=== PATIENT | female | born 1965 | race Caucasian/White ===

== ENCOUNTER 2017-01-24 18:53 | Emergency (ER) | payer MEDICARE, SELFPAY ==
--- NOTE | 2017-01-24 20:15 | EDM.PDOC ---
ED HISTORY OF PRESENT ILLNESS - General Chief Complaint: Chest Pain Stated Complaint: HEAD TINGLING, FATIGUE Time Seen by Provider: 01/24/17 18:55 Source: Reports: Patient History Limitations: Reports: No limitations - History of Present Illness INITIAL COMMENTS - FREE TEXT/NARRATIVE: History of present illness: [51-year-old female presents with an episode of chest pain that occurred about 12:30 1:00 that lasted for about 5 minutes. It was sharp and pressure-like in central in location and associated with some shortness of breath no nausea or diaphoresis. It just happened spontaneously and resolve spontaneously. She's never had anything like it before and now she's feeling fine. She has no history of cardiac disease she does have a history of diabetes and is on Trulicity. I checked the side effect profile for this medication and nothing came up that would suggest it was from the medication.] Review of systems: As per history of present illness and below otherwise all systems reviewed and negative. Past medical history: As per history of present illness and as reviewed below otherwise noncontributory. Surgical history: As per history of present illness and as reviewed below otherwise noncontributory. Social history: No reported history of drug or alcohol abuse. Family history: As per history of present illness and as reviewed below otherwise noncontributory. Physical exam: HEENT: Atraumatic, normocephalic, pupils reactive, negative for conjunctival pallor or scleral icterus, mucous membranes moist, throat clear, neck supple, nontender, trachea midline. Lungs: Clear to auscultation, breath sounds equal bilaterally, chest nontender. Heart: S1S2, regular Abdomen: Soft, nondistended, nontender. Negative for masses or hepatosplenomegaly. Pelvis: Stable nontender. Genitourinary: Deferred. Rectal: Deferred. Extremities: Atraumatic, negative for cords or calf pain. Neurovascular unremarkable. Neuro: Awake, alert, oriented. Exam nonfocal. Diagnostics: [CBC complete metabolic panel d-dimer and troponin were unremarkable EKG is unremarkable] Therapeutics: [] Impression: [Atypical chest pain] Plan: [I am suggesting that she follow up with her primary care provider for consideration of cardiac stress test. Although I think that cardiac etiology for her symptoms is unlikely. We went over the more typical symptoms of coronary syndrome and if these occur she is to return to the ER.] Definitive disposition and diagnosis as appropriate pending reevaluation and review of above. - Related Data Allergies/ADRs: Allergies Allergy/AdvReac Type Severity Reaction Status Date / Time azithromycin AdvReac Intermediate Nausea Verified 01/24/17 19:06 Home Meds: Home Meds Albuterol [Ventolin HFA] 2 puff INH Q4H PRN 07/01/13 [History] Aspirin [Adult Low Dose Aspirin EC] 81 mg PO DAILY 07/01/13 [History] Cyclobenzaprine HCl [Flexeril] 10 mg PO TID PRN 07/01/13 [History] Lisinopril 20 mg PO DAILY 07/01/13 [History] Omeprazole [Prilosec] 20 mg PO DAILY 07/01/13 [History] Zolpidem [Ambien] 10 mg PO BEDTIME 07/01/13 [History] atorvaSTATin [Lipitor] 40 mg PO DAILY 07/01/13 [History] metFORMIN [Glucophage] 850 mg PO TID 07/01/13 [History] traMADol HCl [Ultram] 1 tab PO Q6HR 07/01/13 [History] Gabapentin [Neurontin] 1 tab PO TID 06/22/15 [History] Mupirocin Cream [Bactroban Crm] 1 applic TOP BID 06/22/15 [History] Naproxen [Naprosyn] 500 mg PO BID 10/25/15 [History] Past Medical History HEENT History: Reports: Cataract, Impaired vision, Sinusitis Cardiovascular History: Reports: Congenital septal defect, High cholesterol, Hypertension Respiratory History: Reports: Asthma, Bronchitis, recurrent Gastrointestinal History: Reports: Cholelithiasis, Gastritis, GERD Other Gastrointestinal History: Hep C 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 , 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, Musculoskeletal History: Reports: Back pain, chronic Neurological History: Reports: Neuropathy, peripheral Psychiatric History: Reports: Anxiety, Panic attack Endocrine/Metabolic History: Reports: Diabetes, type II Oncologic (Cancer) History: Reports: Cervix - Infectious Disease History Infectious Disease History: Reports: Hepatitis C - Past Surgical History HEENT Surgical History: Reports: Cataract surgery Cardiovascular Surgical History: Reports: Other (see below) Other Cardiovascular Surgeries/Procedures: repair congenital septal defect GI Surgical History: Reports: Cholecystectomy, Colonoscopy Female Surgical History: Reports: section, Tubal ligation Social & Family History - Tobacco Use Smoking Status *Q: Former Smoker Years of Tobacco use: 18 Used Tobacco, but Quit: No Second Hand Smoke Exposure: Yes - Alcohol Use Days Per Week of Alcohol Use: 1 Number of Drinks Per Day: 12 Total Drinks Per Week: 12 - Recreational Drug Use Recreational Drug Use: No Drug Use in Last 12 Months: No ED ROS GENERAL - Review of Systems Review Of Systems: ROS reveals no pertinent complaints other than HPI. ED EXAM, GENERAL - Physical Exam Exam: See Below Course - Vital Signs Last Recorded V/S: Last Vital Signs Temp 36.6 C 01/24/17 19:03 Pulse 90 01/24/17 19:03 Resp 18 01/24/17 19:03 BP 177/97 H 01/24/17 19:03 Pulse Ox 98 01/24/17 19:03 - Orders/Labs/Meds Orders: Active Orders 24 hr Category Date Time Status EKG Documentation Completion [RC] ASDIRECTED Care 01/24/17 19:20 Active EKG 12 Lead [EK] Stat Ther 01/24/17 19:20 Ordered Labs: Laboratory Tests 01/24/17 01/24/17 01/24/17 Range/Units 19:20 19:20 19:20 WBC 5.4 (4.5-11.0) K/uL RBC 4.58 (3.30-5.50) M/uL Hgb 12.9 (12.0-15.0) g/dL Hct 40.0 (36.0-48.0) % MCV 87 (80-98) fL MCH 28 (27-31) pg MCHC 32 (32-36) % Plt Count 149 L (150-400) K/uL Neut % (Auto) 51 (36-66) % Lymph % (Auto) 36 (24-44) % Burnet % (Auto) 11 H (2-6) % Eos % (Auto) 2 (2-4) % Baso % (Auto) 1 (0-1) % D-Dimer, Quantitative < 100 (0.0-400.0) ng/mL Sodium 142 (140-148) mmol/L Potassium 4.0 (3.6-5.2) mmol/L Chloride 105 (100-108) mmol/L Carbon Dioxide 26 (21-32) mmol/L Anion Gap 11.2 (5.0-14.0) mmol/L BUN 13 D (7-18) mg/dL Creatinine 0.8 (0.6-1.0) mg/dL Est Cr Clr Drug Dosing 67.27 mL/min Estimated GFR (MDRD) > 60 (>60) Glucose 104 (74-106) mg/dL Calcium 9.0 (8.5-10.1) mg/dL Total Bilirubin 0.5 (0.2-1.0) mg/dL AST 23 (15-37) U/L ALT 29 (12-78) U/L Alkaline Phosphatase 66 (46-116) U/L Troponin I < 0.017 (0.000-0.056) ng/mL Total Protein 7.6 (6.4-8.2) g/dL Albumin 3.9 (3.4-5.0) g/dL Globulin 3.7 H (2.3-3.5) g/dL Albumin/Globulin Ratio 1.1 L (1.2-2.2) Departure - Departure Time of Disposition: 20:14 Disposition: Home, Self-Care 01 Condition: good Clinical Impression: Atypical chest pain Forms: ED Department Discharge Additional Instructions: Please followup with your primary care doctor for consideration of a cardiac stress test. If the symptoms recur especially if they last longer than 5 minutes he should followup in the ER - My Orders Last 24 Hours: My Active Orders 01/24/17 19:20 EKG Documentation Completion [RC] ASDIRECTED EKG 12 Lead [EK] Stat - Assessment/Plan Last 24 Hours: My Active Orders 01/24/17 19:20 EKG Documentation Completion [RC] ASDIRECTED EKG 12 Lead [EK] Stat
[2017-01-24 20:32] VITALS: BP 148/79
== END 2017-01-24 20:32 | disposition home or self-care (01) ==
LOC: JP.ED 18:53
DX: R07.89 Other chest pain (principal); E78.00 Pure hypercholesterolemia, unspecified; I10 Essential (primary) hypertension; K21.9 Gastro-esophageal reflux disease without esophagitis; E11.9 Type 2 diabetes mellitus without complications; Z90.49 Acquired absence of other specified parts of digestive tract; Z87.891 Personal history of nicotine dependence; Z88.1 Allergy status to other antibiotic agents; Z79.899 Other long term (current) drug therapy; Z79.82 Long term (current) use of aspirin
CPT/HCPCS: 36415; 80053; 84484; 85025; 85379; 93005; 93010; 99283; 99285-25

== ENCOUNTER 2017-04-07 00:21 | Emergency (ER) | payer MEDICARE, SELFPAY ==
[2017-04-07 00:56] VITALS: BP 149/79
[2017-04-07] MEDS ORDERED: Bacitracin Oint 1 GM U/D Packet TOP ONE (01:15)
[2017-04-07] MEDS ORDERED: HYDROmorphone 1 MG/ML Syringe IVPUSH ONE (01:26)
[2017-04-07] MEDS ORDERED: HYDROmorphone 1 MG/ML Syringe IM ONE (01:47)
--- NOTE | 2017-04-07 02:01 | EDM.PDOC ---
ED HPI GENERAL MEDICAL PROBLEM - General Chief Complaint: Upper Extremity Injury/Pain Stated Complaint: FELL DOWN A FLIGHT OF STAIRS / RT ARM INJURY Time Seen by Provider: 04/07/17 00:26 Source of Information: Reports: Patient, Family ( and Nephew) History Limitations: Reports: No Limitations - History of Present Illness INITIAL COMMENTS - FREE TEXT/NARRATIVE: right shoulder pain, left thumb and left foot; this is a 52 year old female presents to ER with and Nephew. They are moving her Daughter out of her home, when she thought she was going up the stairs, when in fact she was facing down the stairs. She went face first and slid down the stairs. The fall was witnessed by her Nephew, who reports she fell down the stair, kind of slid on her face with her right arm shielding her face. no loc reports had a few drinks prior to fall Onset: Sudden Duration: Hour(s): Location: Reports: Upper Extremity, Left, Upper Extremity, Right, Lower Extremity, Left Quality: Reports: Sharp Severity: Moderate Worsens with: Reports: Movement Context: Reports: Trauma (fall at home, down the stairs) Associated Symptoms: Reports: No Other Symptoms right arm Pain Score (Numeric/FACES): 10 - Related Data Allergies Allergy/AdvReac Type Severity Reaction Status Date / Time azithromycin AdvReac Intermediate Nausea Verified 04/07/17 00:52 Home Meds: Home Meds Albuterol [Ventolin HFA] 2 puff INH Q4H PRN 07/01/13 [History] Aspirin [Adult Low Dose Aspirin EC] 81 mg PO DAILY 07/01/13 [History] Cyclobenzaprine HCl [Flexeril] 10 mg PO TID PRN 07/01/13 [History] Lisinopril 20 mg PO DAILY 07/01/13 [History] Omeprazole [Prilosec] 20 mg PO DAILY 07/01/13 [History] Zolpidem [Ambien] 10 mg PO BEDTIME 07/01/13 [History] atorvaSTATin [Lipitor] 40 mg PO DAILY 07/01/13 [History] metFORMIN [Glucophage] 850 mg PO TID 07/01/13 [History] traMADol HCl [Ultram] 1 tab PO Q6HR 07/01/13 [History] Gabapentin [Neurontin] 1 tab PO TID 06/22/15 [History] Mupirocin Cream [Bactroban Crm] 1 applic TOP BID 06/22/15 [History] Naproxen [Naprosyn] 500 mg PO BID 10/25/15 [History] Past Medical History HEENT History: Reports: Cataract, Impaired Vision, Sinusitis Cardiovascular History: Reports: Congenital Septal Defect, High Cholesterol, Hypertension Respiratory History: Reports: Asthma, Bronchitis, Recurrent Gastrointestinal History: Reports: Cholelithiasis, Gastritis, GERD Other Gastrointestinal History: 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 , 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, Musculoskeletal History: Reports: Back Pain, Chronic Neurological History: Reports: Neuropathy, Peripheral Psychiatric History: Reports: Anxiety, Panic Attack Endocrine/Metabolic History: Reports: Diabetes, Type II Hematologic History: Reports: None Immunologic History: Reports: Other (See Below) Other Immunologic History: hepatitis C Oncologic (Cancer) History: Reports: Cervix - Infectious Disease History Infectious Disease History: Reports: Chicken Pox - Past Surgical History HEENT Surgical History: Reports: Cataract Surgery Cardiovascular Surgical History: Reports: Other (See Below) Other Cardiovascular Surgeries/Procedures: Hole in heart repaired GI Surgical History: Reports: Cholecystectomy, Colonoscopy Female Surgical History: Reports: Section, Tubal Ligation Social & Family History - Tobacco Use Smoking Status *Q: Never Smoker Years of Tobacco use: 18 Used Tobacco, but Quit: No Second Hand Smoke Exposure: Yes - Caffeine Use Caffeine Use: Reports: Coffee - Alcohol Use Days Per Week of Alcohol Use: 1 Number of Drinks Per Day: 12 Total Drinks Per Week: 12 - Recreational Drug Use Recreational Drug Use: No Drug Use in Last 12 Months: No - Living Situation & Occupation Living situation: Reports: 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, 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[facility]) Review of Systems - Review of Systems Review Of Systems: See Below Constitutional: Reports: No Symptoms Eyes: Reports: No Symptoms Ears: Reports: No Symptoms Nose: Reports: Other (abrasion on nose ) Mouth/Throat: Reports: No Symptoms Respiratory: Reports: No Symptoms Cardiovascular: Reports: No Symptoms GI/Abdominal: Reports: No Symptoms Genitourinary: Reports: No Symptoms Musculoskeletal: Reports: Shoulder Pain, Hand Pain, Foot Pain Skin: Reports: Wound (multi facial abrasions noted) Neurological: Reports: No Symptoms Psychiatric: Reports: No Symptoms ED EXAM, GENERAL - Physical Exam Exam: See Below Exam Limited By: No Limitations General Appearance: Alert, WD/WN, Moderate Distress Eye Exam: Bilateral Eye: Normal Inspection Ears: Normal External Exam, Normal Canal, Hearing Grossly Normal, Normal TMs Ear Exam: Bilateral Ear: Auricle Normal, Canal Normal, TM normal Nose: Other (mult superfical abrasion to upper lip, nose, right cheek and forehead.) Throat/Mouth: Normal Inspection, Normal Lips, Normal Teeth, Normal Gums, Normal Oropharynx, Normal Voice, No Airway Compromise Head: Atraumatic, Normocephalic Neck: Normal Inspection, Supple, Non-Tender, Full Range of Motion Respiratory/Chest: No Respiratory Distress, Lungs Clear, Normal Breath Sounds, No Accessory Muscle Use, Chest Non-Tender Cardiovascular: Normal Peripheral Pulses, Regular Rate, Rhythm, No Edema, No Gallop, No JVD, No Murmur, No Rub GI/Abdominal: Normal Bowel Sounds, Soft, Non-Tender, No Organomegaly, No Distention, No Abnormal Bruit, No Mass (Female) Exam: Deferred Rectal (Female) Exam: Deferred Back Exam: Normal Inspection, Full Range of Motion, NT Extremities: Normal Capillary Refill, Joint Swelling (left thumb and great toe) , Arm Pain, Limited Range of Motion (right shoulder, left thumb) Neurological: Alert, Oriented, Normal Cognition, Normal Gait, Normal Reflexes, No Motor/Sensory Deficits, Other Psychiatric: Normal Affect Skin Exam: Warm, Other (multi abrasion noted to face) Lymphatic: No Adenopathy ED TRAUMA EXTREMITY PROCEDURES - Splinting Left Lower Extremity Pre-Procedure NV Status: Normal Post-Procedure NV Status: Normal Splint Material: Other (post-op shoe) Splint Design: Thumb Spica (left thumb), Other (right shoulder immobilizer) Applied & Form Fitted By: Nurse, Tech Provider Post-Splint Application NV Check: NV Status Normal, Good Position Complications: No Course - Vital Signs Last Recorded V/S: Last Vital Signs Temp 35.9 C 04/07/17 00:45 Pulse 85 04/07/17 00:45 Resp 18 04/07/17 00:45 BP 149/79 H 04/07/17 00:45 Pulse Ox 94 L 04/07/17 00:45 - Orders/Labs/Meds Orders: Active Orders 24 hr Category Date Time Status Chest 2V [CR] Urgent Exams 04/07/17 01:15 Taken Elbow Min 3V Rt [CR] Stat Exams 04/07/17 01:12 Taken Hand Comp Min 3V Lt [CR] Stat Exams 04/07/17 01:10 Taken Shoulder Comp Rt [CR] Stat Exams 04/07/17 01:12 Taken Toes Multiple Lt [CR] Stat Exams 04/07/17 01:10 Taken Ondansetron [Zofran ODT] Med 04/07/17 02:17 Once 4 mg PO ONETIME ONE Meds: Medications Discontinued Medications Generic Name Dose Route Start Last Admin Trade Name Travis PRN Reason Stop Dose Admin Bacitracin 1 dose 04/07/17 01:15 04/07/17 01:59 Bacitracin Oint 1 Gm TOP 04/07/17 01:16 1 dose ONETIME ONE Administration Hydromorphone HCl 1 mg 04/07/17 01:47 04/07/17 02:00 Dilaudid IM 04/07/17 01:48 1 mg ONETIME ONE Administration - Radiology Interpretation Free Text/Narrative:: chest xray; negative on wet read right shoulder; fracture noted to proximal humeral head left thumb; fracture left great toe; fracture placed in splint; shoulder immobilizer, thumb spica, post-op shoe referral to orthopedics Departure - Departure Time of Disposition: 02:21 Disposition: Home, Self-Care 01 Condition: Good Clinical Impression: Fracture of humerus, Fracture of thumb, left, closed, Fracture of great toe, left, closed, Abrasion, face w/o infection - Discharge Information Instructions: Toe Fracture, [id number], Thumb Fracture, Humerus Fracture Treated With Immobilization, Abrasion, [id number] Referrals: Yesenia Teran PA [Primary Care Provider] - Forms: ED Department Discharge Care Plan Goals: Multi fractures; right shoulder, left thumb, left toe -keep in splint -ice intermittently for the next 3 days then heating pad -take tylenol for pain -take Percocet for acute pain; one tablet every 4 to 6 hours as needed for pain Referral to Orthopedics for evaluation on Sunday. return to ER for any acute pain, fever, chills, nausea, vomiting, or any concerns. - Problem List & Annotations (1) Abrasion, face w/o infection SNOMED Code(s): 48103328 Code(s): S00.81XA - ABRASION OF OTHER PART OF HEAD, INITIAL ENCOUNTER Status: Acute Priority: High Current Visit: Yes (2) Fracture of great toe, left, closed SNOMED Code(s): 223587169 Code(s): S92.402A - DISPLACED UNSP FRACTURE OF LEFT GREAT TOE, INIT FOR CLOS FX Status: Acute Priority: High Current Visit: Yes Qualifiers: Encounter type: initial encounter Phalanx: distal Fracture alignment: nondisplaced Qualified Code(s): S92.425A - Nondisplaced fracture of distal phalanx of left great toe, initial encounter for closed fracture (3) Fracture of humerus SNOMED Code(s): 97720040 Code(s): S42.309A - UNSP FRACTURE OF SHAFT OF HUMERUS, UNSP ARM, INIT Status: Acute Priority: High Current Visit: Yes Qualifiers: Encounter type: initial encounter Humerus Location: proximal Fracture type: closed Laterality: right (4) Fracture of thumb, left, closed SNOMED Code(s): 042640145 Code(s): S62.502A - FRACTURE OF UNSP PHALANX OF LEFT THUMB, INIT FOR CLOS FX Status: Acute Priority: High Current Visit: Yes Qualifiers: Encounter type: initial encounter Phalanx: proximal - My Orders Last 24 Hours: My Active Orders 04/07/17 01:10 Hand Comp Min 3V Lt [CR] Stat Toes Multiple Lt [CR] Stat 04/07/17 01:12 Elbow Min 3V Rt [CR] Stat Shoulder Comp Rt [CR] Stat 04/07/17 01:15 Chest 2V [CR] Urgent 04/07/17 02:17 Ondansetron [Zofran ODT] 4 mg PO ONETIME ONE - Assessment/Plan Last 24 Hours: My Active Orders 04/07/17 01:10 Hand Comp Min 3V Lt [CR] Stat Toes Multiple Lt [CR] Stat 04/07/17 01:12 Elbow Min 3V Rt [CR] Stat Shoulder Comp Rt [CR] Stat 04/07/17 01:15 Chest 2V [CR] Urgent 04/07/17 02:17 Ondansetron [Zofran ODT] 4 mg PO ONETIME ONE Plan: Multi fractures; right shoulder, left thumb, left toe -keep in splint -ice intermittently for the next 3 days then heating pad -take tylenol for pain -take Percocet for acute pain; one tablet every 4 to 6 hours as needed for pain Referral to Orthopedics for evaluation on Sunday. Abrasion to face -ice intermittently to prevent swelling -apply bacitracin ointment two times a day for 7 days -monitor for signs of infections return to ER for any acute pain, fever, chills, nausea, vomiting, or any concerns.
[2017-04-07] MEDS ORDERED: Ondansetron 4 MG Tab.DIS PO ONE (02:17)
--- NOTE | 2017-04-09 09:14 | CR ---
Sternotomy. Heart size within normal limits. No focal consolidation. No pneumothorax.
--- NOTE | 2017-04-09 09:52 | CR ---
No gross evidence for fracture. The lateral view obscures the radial head. If symptoms persist recom mend radiographic follow-up with a true lateral view.
--- NOTE | 2017-04-09 10:59 | CR ---
Fracture of the distal base of the first proximal phalanx medially at the IP joint. Fracture of the medial corner of the first proximal phalangeal base at the MTP joint as well.
--- NOTE | 2017-04-09 11:02 | CR ---
There is a avulsion fragment at the base of the first proximal phalanx laterally at the first MCP rey int. Remainder intact.
--- NOTE | 2017-04-09 11:03 | CR ---
Comminuted fracture at the surgical neck of the humerus and the humeral head extending into the grea ter tuberosity. No dislocation.
== END 2017-04-07 02:23 | disposition home or self-care (01) ==
LOC: JP.ED 00:21
DX: S42.211A Unspecified displaced fracture of surgical neck of right humerus, initial encounter for closed fracture (principal); S42.251A Displaced fracture of greater tuberosity of right humerus, initial encounter for closed fracture; S92.412A Displaced fracture of proximal phalanx of left great toe, initial encounter for closed fracture; S62.512A Displaced fracture of proximal phalanx of left thumb, initial encounter for closed fracture; S00.511A Abrasion of lip, initial encounter; S00.81XA Abrasion of other part of head, initial encounter; I10 Essential (primary) hypertension; E78.00 Pure hypercholesterolemia, unspecified; K21.9 Gastro-esophageal reflux disease without esophagitis; E11.9 Type 2 diabetes mellitus without complications; F41.0 Panic disorder [episodic paroxysmal anxiety]; Z88.1 Allergy status to other antibiotic agents; Z79.82 Long term (current) use of aspirin; Z79.84 Long term (current) use of oral hypoglycemic drugs; Z79.899 Other long term (current) drug therapy; Z85.41 Personal history of malignant neoplasm of cervix uteri; Z98.49 Cataract extraction status, unspecified eye; Z90.49 Acquired absence of other specified parts of digestive tract; Z98.51 Tubal ligation status; Z98.890 Other specified postprocedural states; W10.9XXA Fall (on) (from) unspecified stairs and steps, initial encounter; Y92.009 Unspecified place in unspecified non-institutional (private) residence as the place of occurrence of the external cause
CPT/HCPCS: 29125; 71020; 73030; 73080; 73130; 73660; 96372; 99284; A9270; J1170; 29105

== ENCOUNTER 2018-06-03 22:47 | Emergency (ER) | payer MEDICARE, OTHER, SELFPAY ==
--- NOTE | 2018-06-03 23:54 | EDM.PDOC ---
ED HPI GENERAL MEDICAL PROBLEM - General Chief Complaint: General Stated Complaint: ILLNESS Time Seen by Provider: 06/03/18 23:44 Source of Information: Reports: Patient History Limitations: Reports: No Limitations - History of Present Illness INITIAL COMMENTS - FREE TEXT/NARRATIVE: Rolled right ankle about 3 hours ago. Hurts to bear weight. Sutton popping sounds. Hurts posterior to lateral malleolus. - Related Data Allergies Allergy/AdvReac Type Severity Reaction Status Date / Time azithromycin AdvReac Intermediate Nausea Verified 04/07/17 00:52 Home Meds: Home Meds Albuterol [Ventolin HFA] 2 puff INH Q4H PRN 07/01/13 [History] Aspirin [Adult Low Dose Aspirin EC] 81 mg PO DAILY 07/01/13 [History] Lisinopril 20 mg PO DAILY 07/01/13 [History] Omeprazole [Prilosec] 20 mg PO DAILY 07/01/13 [History] Zolpidem [Ambien] 10 mg PO BEDTIME 07/01/13 [History] atorvaSTATin [Lipitor] 40 mg PO DAILY 07/01/13 [History] metFORMIN [Glucophage] 850 mg PO TID 07/01/13 [History] Gabapentin [Neurontin] 1 tab PO TID 06/22/15 [History] Naproxen [Naprosyn] 500 mg PO BID 10/25/15 [History] Past Medical History HEENT History: Reports: Cataract, Impaired Vision, Sinusitis Cardiovascular History: Reports: Congenital Septal Defect, High Cholesterol, Hypertension Respiratory History: Reports: Asthma, Bronchitis, Recurrent Gastrointestinal History: Reports: Cholelithiasis, Gastritis, GERD Other Gastrointestinal History: 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 , 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, Musculoskeletal History: Reports: Back Pain, Chronic, Fracture, Other (See Below ) Other Musculoskeletal History: R shoulder pain Neurological History: Reports: Neuropathy, Peripheral Psychiatric History: Reports: Anxiety, Panic Attack Endocrine/Metabolic History: Reports: Diabetes, Type II Hematologic History: Reports: None Immunologic History: Reports: Other (See Below) Other Immunologic History: hepatitis C Oncologic (Cancer) History: Reports: Cervix - Infectious Disease History Infectious Disease History: Reports: Hepatitis C - Past Surgical History HEENT Surgical History: Reports: Cataract Surgery Cardiovascular Surgical History: Reports: Other (See Below) Other Cardiovascular Surgeries/Procedures: Hole in heart repaired GI Surgical History: Reports: Cholecystectomy, Colonoscopy Female Surgical History: Reports: Section, Tubal Ligation Social & Family History - Tobacco Use Smoking Status *Q: Never Smoker Second Hand Smoke Exposure: Yes - Caffeine Use Caffeine Use: Reports: Coffee - Alcohol Use Days Per Week of Alcohol Use: 1 Number of Drinks Per Day: 1 Total Drinks Per Week: 1 - Recreational Drug Use Recreational Drug Use: No - Living Situation & Occupation Living situation: Reports: 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 ED EXAM, GENERAL - Physical Exam Exam: See Below Exam Limited By: No Limitations General Appearance: Alert, WD/WN, Mild Distress Extremities: Other (Minimal swelling to area around lateral malleolus on rt. FROM. Stable joint. No ecchymosis. NVT intact.) Course - Vital Signs Last Recorded V/S: Last Vital Signs Temp 35.7 C 06/03/18 22:51 Pulse 66 06/03/18 22:51 Resp 16 06/03/18 22:51 BP 180/77 H 06/03/18 22:51 Pulse Ox 97 06/03/18 22:51 - Orders/Labs/Meds Orders: Active Orders 24 hr Category Date Time Status EKG Documentation Completion [RC] ASDIRECTED Care 06/03/18 23:45 Ordered CBC WITH AUTO DIFF [HEME] Urgent Lab 06/03/18 23:44 Ordered COMPREHENSIVE METABOLIC PN,CMP [CHEM] Urgent Lab 06/03/18 23:44 Ordered TROPONIN I [CHEM] Urgent Lab 06/03/18 23:45 Ordered UA W/MICROSCOPIC [URIN] Urgent Lab 06/03/18 23:44 Ordered EKG 12 Lead [EK] Urgent Ther 06/03/18 23:45 Ordered - Radiology Interpretation Free Text/Narrative:: ankle xray: no fracture or dislocation Departure - Departure Time of Disposition: 23:51 Disposition: Home, Self-Care 01 Condition: Fair Clinical Impression: Mild ankle sprain - Discharge Information Referrals: PCP,None [Primary Care Provider] - Additional Instructions: Elevate and apply cold pack several times daily, about 20 minutes each time. Use ROSAURA wrap for comfort. Use your own crutches. Weight bearing as tolerated. See your doctor if unable to bear weight in 3-4 days. You should be back to full weight bearing in about 2 weeks. - My Orders Last 24 Hours: My Active Orders 06/03/18 23:44 CBC WITH AUTO DIFF [HEME] Urgent COMPREHENSIVE METABOLIC PN,CMP [CHEM] Urgent UA W/MICROSCOPIC [URIN] Urgent 06/03/18 23:45 EKG Documentation Completion [RC] ASDIRECTED TROPONIN I [CHEM] Urgent EKG 12 Lead [EK] Urgent - Assessment/Plan Last 24 Hours: My Active Orders 06/03/18 23:44 CBC WITH AUTO DIFF [HEME] Urgent COMPREHENSIVE METABOLIC PN,CMP [CHEM] Urgent UA W/MICROSCOPIC [URIN] Urgent 06/03/18 23:45 EKG Documentation Completion [RC] ASDIRECTED TROPONIN I [CHEM] Urgent EKG 12 Lead [EK] Urgent
[2018-06-04 01:16] VITALS: BP 155/69
--- NOTE | 2018-06-04 01:55 | EDM.PDOC ---
ED HPI GENERAL MEDICAL PROBLEM - General Chief Complaint: General Stated Complaint: ILLNESS Time Seen by Provider: 06/03/18 23:44 Source of Information: Reports: Patient History Limitations: Reports: No Limitations - History of Present Illness INITIAL COMMENTS - FREE TEXT/NARRATIVE: She felt a fullness in her right breast that radiated into her left arm. This started about 2030 and lasted 30 min. At same time her BS was 375. She gave herself her weekly injection of ? med and took a metformin tab. She feels fine now but wants to get checked out. No more chest fullness. Only heart problem is surgery for "a hole in my heart". - Related Data Allergies Allergy/AdvReac Type Severity Reaction Status Date / Time azithromycin AdvReac Intermediate Nausea Verified 04/07/17 00:52 Home Meds: Home Meds Albuterol [Ventolin HFA] 2 puff INH Q4H PRN 07/01/13 [History] Aspirin [Adult Low Dose Aspirin EC] 81 mg PO DAILY 07/01/13 [History] Lisinopril 20 mg PO DAILY 07/01/13 [History] Omeprazole [Prilosec] 20 mg PO DAILY 07/01/13 [History] Zolpidem [Ambien] 10 mg PO BEDTIME 07/01/13 [History] atorvaSTATin [Lipitor] 40 mg PO DAILY 07/01/13 [History] metFORMIN [Glucophage] 850 mg PO TID 07/01/13 [History] Gabapentin [Neurontin] 1 tab PO TID 06/22/15 [History] Naproxen [Naprosyn] 500 mg PO BID 10/25/15 [History] Past Medical History HEENT History: Reports: Cataract, Impaired Vision, Sinusitis Cardiovascular History: Reports: Congenital Septal Defect, High Cholesterol, Hypertension Respiratory History: Reports: Asthma, Bronchitis, Recurrent Gastrointestinal History: Reports: Cholelithiasis, Gastritis, GERD Other Gastrointestinal History: Hep C 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 , 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, Musculoskeletal History: Reports: Back Pain, Chronic, Fracture, Other (See Below ) Other Musculoskeletal History: R shoulder pain Neurological History: Reports: Neuropathy, Peripheral Psychiatric History: Reports: Anxiety, Panic Attack Endocrine/Metabolic History: Reports: Diabetes, Type II Hematologic History: Reports: None Immunologic History: Reports: Other (See Below) Other Immunologic History: hepatitis C Oncologic (Cancer) History: Reports: Cervix - Infectious Disease History Infectious Disease History: Reports: Hepatitis C - Past Surgical History HEENT Surgical History: Reports: Cataract Surgery Cardiovascular Surgical History: Reports: Other (See Below) Other Cardiovascular Surgeries/Procedures: Hole in heart repaired GI Surgical History: Reports: Cholecystectomy, Colonoscopy Female Surgical History: Reports: Section, Tubal Ligation Social & Family History - Tobacco Use Smoking Status *Q: Never Smoker Second Hand Smoke Exposure: Yes - Caffeine Use Caffeine Use: Reports: Coffee - Alcohol Use Days Per Week of Alcohol Use: 1 Number of Drinks Per Day: 1 Total Drinks Per Week: 1 - Recreational Drug Use Recreational Drug Use: No - Living Situation & Occupation Living situation: Reports: Occupation: Employed ([employer], 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[facility]) ED ROS GENERAL - Review of Systems Review Of Systems: See Below Constitutional: Reports: No Symptoms HEENT: Reports: No Symptoms Respiratory: Reports: No Symptoms Cardiovascular: Reports: Chest Pain Endocrine: Reports: No Symptoms GI/Abdominal: Reports: No Symptoms : Reports: No Symptoms Musculoskeletal: Reports: No Symptoms Skin: Reports: No Symptoms Neurological: Reports: No Symptoms Psychiatric: Reports: No Symptoms Hematologic/Lymphatic: Reports: No Symptoms ED EXAM, GENERAL - Physical Exam Exam: See Below Exam Limited By: No Limitations General Appearance: Alert, WD/WN Eye Exam: Bilateral Eye: EOMI, PERRL Nose: Normal Inspection Throat/Mouth: Normal Oropharynx Neck: Normal Inspection Respiratory/Chest: Lungs Clear Cardiovascular: Regular Rate, Rhythm, No Murmur Peripheral Pulses: 2+: Radial (L), Radial (R) GI/Abdominal: Soft, Non-Tender Back Exam: Normal Inspection Extremities: Normal Inspection, Normal Range of Motion, Non-Tender, No Pedal Edema, Other (Minimal swelling to area around lateral malleolus on rt. FROM. Stable joint. No ecchymosis. NVT intact.) Neurological: Alert, Oriented Psychiatric: Normal Affect Skin Exam: Warm, Dry Course - Vital Signs Last Recorded V/S: Last Vital Signs Temp 35.7 C 06/03/18 22:51 Pulse 69 06/04/18 00:39 Resp 16 06/04/18 01:15 BP 155/69 H 06/04/18 01:15 Pulse Ox 93 L 06/04/18 01:15 - Orders/Labs/Meds Orders: Active Orders 24 hr Category Date Time Status EKG Documentation Completion [RC] ASDIRECTED Care 06/03/18 23:45 Active UA W/MICROSCOPIC [URIN] Urgent Lab 06/04/18 00:08 Ordered EKG 12 Lead [EK] Urgent Ther 06/03/18 23:45 Ordered Labs: Laboratory Tests 06/03/18 06/03/18 06/03/18 Range/Units 23:44 23:44 23:45 WBC 5.5 (4.5-11.0) K/uL RBC 4.39 (3.30-5.50) M/uL Hgb 11.9 L (12.0-15.0) g/dL Hct 36.8 (36.0-48.0) % MCV 84 (80-98) fL MCH 27 (27-31) pg MCHC 32 (32-36) % Plt Count 158 (150-400) K/uL Neut % (Auto) 55 (36-66) % Lymph % (Auto) 32 (24-44) % [place] % (Auto) 10 H (2-6) % Eos % (Auto) 2 (2-4) % Baso % (Auto) 1 (0-1) % Sodium 138 L (140-148) mmol/L Potassium 3.6 (3.6-5.2) mmol/L Chloride 104 (100-108) mmol/L Carbon Dioxide 25 (21-32) mmol/L Anion Gap 12.6 (5.0-14.0) mmol/L BUN 12 (7-18) mg/dL Creatinine 0.8 (0.6-1.0) mg/dL Est Cr Clr Drug Dosing 65.73 mL/min Estimated GFR (MDRD) > 60 (>60) Glucose 159 H (74-106) mg/dL Calcium 9.0 (8.5-10.1) mg/dL Total Bilirubin 0.3 (0.2-1.0) mg/dL AST 24 (15-37) U/L ALT 28 (12-78) U/L Alkaline Phosphatase 81 (46-116) U/L Troponin I < 0.017 (0.000-0.056) ng/mL Total Protein 7.3 (6.4-8.2) g/dL Albumin 3.5 (3.4-5.0) g/dL Globulin 3.8 H (2.3-3.5) g/dL Albumin/Globulin Ratio 0.9 L (1.2-2.2) Urine Color Urine Appearance Urine pH (4.5-8.0) Ur Specific [place] (1.008-1.030) Urine Protein (NEGATIVE) mg/dL Urine Glucose (UA) (NEGATIVE) mg/dL Urine Ketones (NEGATIVE) mg/dL Urine Occult Blood (NEGATIVE) Urine Nitrite (NEGATIVE) Urine Bilirubin (NEGATIVE) Urine Urobilinogen (NORMAL) mg/dL Ur Leukocyte Esterase (NEGATIVE) Urine RBC (0-5) Urine WBC (0-5) Ur Epithelial Cells Amorphous Sediment Urine Bacteria Urine Mucus 06/04/18 Range/Units 00:08 WBC (4.5-11.0) K/uL RBC (3.30-5.50) M/uL Hgb (12.0-15.0) g/dL Hct (36.0-48.0) % MCV (80-98) fL MCH (27-31) pg MCHC (32-36) % Plt Count (150-400) K/uL Neut % (Auto) (36-66) % Lymph % (Auto) (24-44) % [place] % (Auto) (2-6) % Eos % (Auto) (2-4) % Baso % (Auto) (0-1) % Sodium (140-148) mmol/L Potassium (3.6-5.2) mmol/L Chloride (100-108) mmol/L Carbon Dioxide (21-32) mmol/L Anion Gap (5.0-14.0) mmol/L BUN (7-18) mg/dL Creatinine (0.6-1.0) mg/dL Est Cr Clr Drug Dosing mL/min Estimated GFR (MDRD) (>60) Glucose (74-106) mg/dL Calcium (8.5-10.1) mg/dL Total Bilirubin (0.2-1.0) mg/dL AST (15-37) U/L ALT (12-78) U/L Alkaline Phosphatase (46-116) U/L Troponin I (0.000-0.056) ng/mL Total Protein (6.4-8.2) g/dL Albumin (3.4-5.0) g/dL Globulin (2.3-3.5) g/dL Albumin/Globulin Ratio (1.2-2.2) Urine Color Yellow Urine Appearance Clear Urine pH 7.0 (4.5-8.0) Ur Specific [place] 1.005 L (1.008-1.030) Urine Protein Negative (NEGATIVE) mg/dL Urine Glucose (UA) 1000 H (NEGATIVE) mg/dL Urine Ketones Negative (NEGATIVE) mg/dL Urine Occult Blood Negative (NEGATIVE) Urine Nitrite Negative (NEGATIVE) Urine Bilirubin Negative (NEGATIVE) Urine Urobilinogen Normal (NORMAL) mg/dL Ur Leukocyte Esterase Negative (NEGATIVE) Urine RBC 0-5 (0-5) Urine WBC 0-5 (0-5) Ur Epithelial Cells Few Amorphous Sediment Not seen Urine Bacteria Not seen Urine Mucus Not seen - Re-Assessments/Exams Free Text/Narrative Re-Assessment/Exam: 06/04/18 01:58 EKG shows NSR at 68, Abn R-wave prog, probably lead placement. Borderline T abn. This is nearly identical to an EKG from 01/2017 Labs reviewed. BP noted. 06/04/18 02:05 Departure - Departure Time of Disposition: 02:00 Disposition: Home, Self-Care 01 Condition: Fair Clinical Impression: Uncontrolled diabetes mellitus, Chest pain - Discharge Information Referrals: PCP,None [Primary Care Provider] - Forms: ED Department Discharge Additional Instructions: Continue to monitor your blood sugar as before. See your doctor soon. There were some very minor EKG abnormalities changed from January 2017. Most likely it is nothing but talk with your doctor about it. - My Orders Last 24 Hours: My Active Orders 06/03/18 23:45 EKG Documentation Completion [RC] ASDIRECTED EKG 12 Lead [EK] Urgent 06/04/18 00:08 UA W/MICROSCOPIC [URIN] Urgent - Assessment/Plan Last 24 Hours: My Active Orders 06/03/18 23:45 EKG Documentation Completion [RC] ASDIRECTED EKG 12 Lead [EK] Urgent 06/04/18 00:08 UA W/MICROSCOPIC [URIN] Urgent
== END 2018-06-04 02:12 | disposition home or self-care (01) ==
LOC: JP.ED 22:47
DX: R07.9 Chest pain, unspecified (principal); E11.65 Type 2 diabetes mellitus with hyperglycemia; Z88.1 Allergy status to other antibiotic agents; Z79.82 Long term (current) use of aspirin; Z79.899 Other long term (current) drug therapy; Z77.22 Contact with and (suspected) exposure to environmental tobacco smoke (acute) (chronic); Z79.84 Long term (current) use of oral hypoglycemic drugs
CPT/HCPCS: 36415; 80053; 81001; 84484; 85025; 93005; 99284-25

== ENCOUNTER 2018-12-25 00:53 | Emergency (ER) | payer MEDICARE ==
[2018-12-25] MEDS ORDERED: Aspirin 81 MG Tab.Chew PO ONE (01:27)
--- NOTE | 2018-12-25 01:31 | EDM.PDOC ---
ED HPI GENERAL MEDICAL PROBLEM - General Chief Complaint: Chest Pain Stated Complaint: CHEST PAIN Time Seen by Provider: 12/25/18 01:22 Source of Information: Reports: Patient, Family, RN Notes Reviewed History Limitations: Reports: No Limitations - History of Present Illness INITIAL COMMENTS - FREE TEXT/NARRATIVE: 53-year-old female presents emergency department day complaint of chest pressure and elevated blood pressure, she states around 8:00 this evening 6 hours prior to presentation was watching a movie didn't feel right check her blood pressure with her home device was approximately 200 systolic at which time she developed some chest pressure and diaphoresis. 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 Chest Pain Score (Numeric/FACES): 6 - Related Data Allergies Allergy/AdvReac Type Severity Reaction Status Date / Time azithromycin AdvReac Intermediate Nausea Verified 12/25/18 01:11 Home Meds: Home Meds Albuterol [Ventolin HFA] 2 puff INH Q4H PRN 07/01/13 [History] Aspirin [Adult Low Dose Aspirin EC] 81 mg PO DAILY 07/01/13 [History] Lisinopril 20 mg PO DAILY 07/01/13 [History] Omeprazole [Prilosec] 40 mg PO DAILY 07/01/13 [History] Zolpidem [Ambien] 10 mg PO BEDTIME 07/01/13 [History] atorvaSTATin [Lipitor] 40 mg PO DAILY 07/01/13 [History] metFORMIN [Glucophage] 1,000 mg PO BIDMEALS 07/01/13 [History] Gabapentin [Neurontin] 300 mg PO TID 06/22/15 [History] Naproxen [Naprosyn] 500 mg PO BID PRN 10/25/15 [History] Past Medical History HEENT History: Reports: Cataract, Impaired Vision, Sinusitis Cardiovascular History: Reports: Congenital Septal Defect, High Cholesterol, Hypertension Respiratory History: Reports: Asthma, Bronchitis, Recurrent Gastrointestinal History: Reports: Cholelithiasis, Gastritis, GERD Other Gastrointestinal History: Hep C 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 , 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, Musculoskeletal History: Reports: Back Pain, Chronic, Fracture, Other (See Below ) Other Musculoskeletal History: R shoulder pain Neurological History: Reports: Neuropathy, Peripheral Psychiatric History: Reports: Anxiety, Panic Attack Endocrine/Metabolic History: Reports: Diabetes, Type II Hematologic History: Reports: None Immunologic History: Reports: Other (See Below) Other Immunologic History: hepatitis C Oncologic (Cancer) History: Reports: Cervix - Infectious Disease History Infectious Disease History: Reports: Chicken Pox, Hepatitis C - Past Surgical History HEENT Surgical History: Reports: Cataract Surgery Cardiovascular Surgical History: Reports: Other (See Below) Other Cardiovascular Surgeries/Procedures: Hole in heart repaired GI Surgical History: Reports: Cholecystectomy, Colonoscopy Female Surgical History: Reports: Section, Tubal Ligation, Other ( See Below) Other Female Surgeries/Procedures: tubal Social & Family History - Tobacco Use Smoking Status *Q: Never Smoker Second Hand Smoke Exposure: No - Caffeine Use Caffeine Use: Reports: Coffee, Tea - Recreational Drug Use Recreational Drug Use: No - Living Situation & Occupation Living situation: Reports: 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, 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[facility]) ED ROS GENERAL - Review of Systems Review Of Systems: See Below Constitutional: Reports: Diaphoresis HEENT: Reports: No Symptoms Respiratory: Reports: No Symptoms Cardiovascular: Reports: Chest Pain GI/Abdominal: Reports: No Symptoms ED EXAM, GENERAL - Physical Exam Exam: See Below Exam Limited By: No Limitations General Appearance: Alert, WD/WN, No Apparent Distress Head: Atraumatic, Normocephalic Neck: Normal Inspection, Supple, Non-Tender, Full Range of Motion Respiratory/Chest: No Respiratory Distress, Lungs Clear, Normal Breath Sounds, No Accessory Muscle Use Cardiovascular: Regular Rate, Rhythm, No Murmur GI/Abdominal: Soft, Non-Tender Extremities: Non-Tender, No Pedal Edema Course - Vital Signs Last Recorded V/S: Last Vital Signs Temp 96.6 F 12/25/18 00:56 Pulse 75 12/25/18 02:03 Resp 12 12/25/18 02:03 BP 147/68 H 12/25/18 02:03 Pulse Ox 98 12/25/18 02:03 - Orders/Labs/Meds Orders: Active Orders 24 hr Category Date Time Status Cardiac Monitoring [RC] .As Directed Care 12/25/18 01:26 Active EKG Documentation Completion [RC] ASDIRECTED Care 12/25/18 01:26 Active EKG 12 Lead [EK] Stat Ther 12/25/18 01:26 Ordered Labs: Laboratory Tests 12/25/18 12/25/18 Range/Units 01:34 01:34 WBC 5.8 (4.5-11.0) K/uL RBC 4.45 (3.30-5.50) M/uL Hgb 11.1 L (12.0-15.0) g/dL Hct 35.9 L (36.0-48.0) % MCV 81 (80-98) fL MCH 25 L (27-31) pg MCHC 31 L (32-36) % Plt Count 183 (150-400) K/uL Neut % (Auto) 50 (36-66) % Lymph % (Auto) 37 (24-44) % [place] % (Auto) 11 H (2-6) % Eos % (Auto) 2 (2-4) % Baso % (Auto) 1 (0-1) % Sodium 142 (140-148) mmol/L Potassium 3.8 (3.6-5.2) mmol/L Chloride 105 (100-108) mmol/L Carbon Dioxide 25 (21-32) mmol/L Anion Gap 12.1 (5.0-14.0) mmol/L BUN 13 (7-18) mg/dL Creatinine 0.9 (0.6-1.0) mg/dL Est Cr Clr Drug Dosing 58.42 mL/min Estimated GFR (MDRD) > 60 (>60) Glucose 109 H (74-106) mg/dL Calcium 9.2 (8.5-10.1) mg/dL Total Bilirubin 0.4 (0.2-1.0) mg/dL AST 23 (15-37) U/L ALT 21 (12-78) U/L Alkaline Phosphatase 95 (46-116) U/L Troponin I < 0.017 (0.000-0.056) ng/mL Total Protein 7.7 (6.4-8.2) g/dL Albumin 3.5 (3.4-5.0) g/dL Globulin 4.2 H (2.3-3.5) g/dL Albumin/Globulin Ratio 0.8 L (1.2-2.2) Meds: Medications Discontinued Medications Generic Name Dose Route Start Last Admin Trade Name Freq PRN Reason Stop Dose Admin Aspirin 324 mg 12/25/18 01:27 12/25/18 01:37 Aspirin PO 12/25/18 01:28 324 mg ONETIME ONE Administration Departure - Departure Time of Disposition: 02:05 Disposition: Home, Self-Care 01 Condition: Fair Clinical Impression: Atypical chest pain Referrals: Yesenia Teran PA [Primary Care Provider] - Forms: ED Department Discharge Additional Instructions: Continue with your regular medications, Please followup with your primary care provider in 3-5 days if not better, please call return to the emergency department with worsening of symptoms. - My Orders Last 24 Hours: My Active Orders 12/25/18 01:26 Cardiac Monitoring [RC] .As Directed EKG Documentation Completion [RC] ASDIRECTED EKG 12 Lead [EK] Stat - Assessment/Plan Last 24 Hours: My Active Orders 12/25/18 01:26 Cardiac Monitoring [RC] .As Directed EKG Documentation Completion [RC] ASDIRECTED EKG 12 Lead [EK] Stat Plan: Assessment Acuity = acute Site and laterality = atypical chest pressure possibly related to hypertensive urgency Etiology = probably related to medical compliance did not take her medications today Manifestations = none Location of injury = Home Lab values = CBC, CMP troponin is undetectable EKG demonstrates no signs of ischemia chest x-ray no acute cardiopulmonary process Plan I did review lab work chest x-ray EKG results with her she remained asymptomatic while in the emergency department she had taken her medication prior to presentation her blood pressure now has returned to within normal limits, discharged home follow-up primary care 3-5 days if no improvement This note was dictated using [employer] voice recognition software please call with any questions on syntax or grammar.
--- NOTE | 2018-12-25 01:57 | CRLCR ---
INDICATION: Chest pain TECHNIQUE: Chest radiograph 1 view COMPARISON: 04/07/2017 FINDINGS: Mediastinum: Previous median sternotomy and coronary artery bypass grafting (CABG) noted. The heart silhouette is normal in size and morphology. Lung: Both lungs are unremarkable in appearance. No sign of pleural effusion seen. No pneumothorax is identified. Musculoskeletal: Unremarkable for age. IMPRESSION: 1. No acute cardiopulmonary disease is seen. Dictated by Kevin Marc MD @ 12/25/2018 1:55:34 AM Dictated by: Kevin Marc MD @ 12/25/2018 01:55:38 (Electronically Signed)
[2018-12-25 02:03] VITALS: BP 147/68
== END 2018-12-25 02:10 | disposition home or self-care (01) ==
LOC: JP.ED 00:53
DX: R07.89 Other chest pain (principal); E11.40 Type 2 diabetes mellitus with diabetic neuropathy, unspecified; I10 Essential (primary) hypertension; E78.00 Pure hypercholesterolemia, unspecified; K21.9 Gastro-esophageal reflux disease without esophagitis; J45.909 Unspecified asthma, uncomplicated; Z79.84 Long term (current) use of oral hypoglycemic drugs; Z79.899 Other long term (current) drug therapy; Z79.82 Long term (current) use of aspirin
CPT/HCPCS: 36415; 71045; 80053; 84484; 85025; 93005; 99285; A9270

== ENCOUNTER 2020-10-22 06:34 | Day surgery (SDC) | payer MEDICARE ==
[2020-10-22] MEDS ORDERED: Sodium Chloride 0.9% 1,000 ML IV SCH (07:15)
[2020-10-22] MEDS ORDERED: Midazolam 1 MG/ML 2 ML SDV ONE (07:21)
[2020-10-22] MEDS ORDERED: fentaNYL 100 MCG/2 ML SDV ONE (07:21)
[2020-10-22] MEDS ORDERED: Propofol 200 MG/20 ML SDV ONE (07:21)
--- NOTE | 2020-10-22 09:17 | OR ---
DATE OF PROCEDURE: 10/22/2020 SURGEON: Andrea Diaz MD PROCEDURE: Colonoscopy. FINDINGS: Normal colonoscopy. PREOPERATIVE DIAGNOSIS: Anemia. POSTOPERATIVE DIAGNOSIS: Anemia. RISKS: Risks, benefits, alternatives, and limitations including, but not limited to infection bleeding and perforation were explained to the patient, and also false positives and false negatives. The patient understands these risks and wished to proceed. PROCEDURE IN DETAIL: The patient was placed in the left lateral decubitus position. Digital rectal exam was performed without abnormality. Scope was introduced and advanced atraumatically to the ileocecal valve. A photo was taken of this. The scope was brought back to the ascending, transverse, descending colon, and retroflexed. No evidence of old or new blood. No masses. No polyps. No diverticulosis. No colitis. No abnormalities on retroflexion. No etiology for the anemia. The prep was acceptable. Approximately 90% luminal surface could be seen. Greater than 8 minutes was spent removing the scope. The patient tolerated the procedure well. Andrea Diaz MD /[id number]
[2020-10-22 09:19] VITALS: BP 163/84; PULSE 69
== END 2020-10-22 09:05 | disposition home or self-care (01) ==
LOC: JP.SDS 06:34
PROVIDERS: ATTEND Surgery
DX: D64.9 Anemia, unspecified (principal); J44.9 Chronic obstructive pulmonary disease, unspecified; F17.200 Nicotine dependence, unspecified, uncomplicated; I10 Essential (primary) hypertension; E11.9 Type 2 diabetes mellitus without complications
CPT/HCPCS: 45378; J2250; J2704; J3010; J7030

== ENCOUNTER 2022-03-26 19:21 | Emergency (ER) | payer MEDICARE | END 2022-03-26 20:40 | disposition left against medical advice (07) | LOC: JP.ED 19:21 | DX: Z53.21 Procedure and treatment not carried out due to patient leaving prior to being seen by health care provider (principal) ==

== ENCOUNTER 2022-12-30 21:29 | Emergency (ER) | payer MEDICARE ==
[2022-12-30 21:40] VITALS: BP 177/85; PULSE 72
[2022-12-30] MEDS ORDERED: Insulin Glargine,Human Rec. Analog 100 Units/ML 3 ML Pen SUBCUT ONE (22:09)
== END 2022-12-30 22:31 | disposition home or self-care (01) ==
LOC: JP.ED 21:29
DX: E11.65 Type 2 diabetes mellitus with hyperglycemia (principal); I10 Essential (primary) hypertension; J45.909 Unspecified asthma, uncomplicated; K21.9 Gastro-esophageal reflux disease without esophagitis; E11.42 Type 2 diabetes mellitus with diabetic polyneuropathy; Z88.1 Allergy status to other antibiotic agents; Z79.82 Long term (current) use of aspirin; Z79.899 Other long term (current) drug therapy
CPT/HCPCS: 99283; J1815

== ENCOUNTER 2023-06-16 12:45 | Emergency (ER) | payer MEDICARE ==
[2023-06-16 13:56] VITALS: BP 156/64; PULSE 105
[2023-06-16 14:17] LABS: BASOPHILS ABSOLUTE AUTO 0.08 K/uL (0.00-0.10); BASOPHILS PERCENT AUTO 0.9 % (0.1-1.3); EOSINOPHILS ABSOLUTE AUTO 0.05 K/uL (0.00-0.40); EOSINOPHILS PERCENT AUTO 0.5 % (0.0-5.4); HEMATOCRIT 41.4 % (34.3-46.0); HEMOGLOBIN 13.6 g/dL (11.2-15.5); IMMATURE GRAN PERCENT AUTO 0.1 % (0.0-0.7); LYMPHOCYTES ABSOLUTE AUTO 1.54 K/uL (0.8-3.3); LYMPHOCYTES PERCENT AUTO 16.7 % (11.4-47.7); MEAN CORPUSCULAR HEMOGLOBIN 28.5 pg (31.6-35.5); MEAN CORPUSCULAR HGB CONC 32.9 g/dL (31.6-35.5); MEAN CORPUSCULAR VOLUME 86.8 fL (81.4-99.0); MONOCYTES ABSOLUTE AUTO 0.73 K/uL (0.20-0.90); MONOCYTES PERCENT AUTO 7.9 % (3.3-12.6); NEUTROPHILS PERCENT AUTO 73.9 % (40.0-78.1); PLATELET COUNT,PLT 238 K/uL (130-375); RED BLOOD CELL COUNT 4.77 M/uL (3.77-5.24); WHITE BLOOD CELL COUNT,WBC 9.2 K/uL (3.2-11.0)
[2023-06-16 14:19] LABS: IMMATURE GRAN ABSOLUTE AUTO 0.01 K/uL (0.00-0.23)
[2023-06-16 14:42] LABS: CALCIUM 9.5 mg/dL (8.5-10.1); CREATININE 0.9 mg/dL (0.6-1.0); EST CRCL DRUG DOSING (CG) 52.57 mL/min; POTASSIUM,K 4.7 mmol/L (3.6-5.2)
[2023-06-16 14:44] LABS: ANION GAP 16.7 mmol/L (5.0-14.0)
== END 2023-06-16 16:32 | disposition home or self-care (01) ==
LOC: JP.ED 12:45
DX: S29.9XXA Unspecified injury of thorax, initial encounter (principal); J45.909 Unspecified asthma, uncomplicated; I10 Essential (primary) hypertension; E78.00 Pure hypercholesterolemia, unspecified; E11.42 Type 2 diabetes mellitus with diabetic polyneuropathy; Z79.899 Other long term (current) drug therapy; Z79.84 Long term (current) use of oral hypoglycemic drugs; Z88.1 Allergy status to other antibiotic agents; Z79.82 Long term (current) use of aspirin; Z98.890 Other specified postprocedural states; W18.30XA Fall on same level, unspecified, initial encounter
CPT/HCPCS: 36415; 71101-26-LT; 71101-LT; 80048; 85025; 99283

== ENCOUNTER 2025-09-04 13:02 | Emergency (ER) | payer MEDICARE ==
[2025-09-04 13:35] LABS: BASOPHILS ABSOLUTE AUTO 0.04 K/uL (0.00-0.10); BASOPHILS PERCENT AUTO 0.6 % (0.1-1.3); EOSINOPHILS ABSOLUTE AUTO 0.07 K/uL (0.00-0.40); EOSINOPHILS PERCENT AUTO 1.1 % (0.0-5.4); IMMATURE GRAN PERCENT AUTO 0.2 % (0.0-0.7); LYMPHOCYTES ABSOLUTE AUTO 1.49 K/uL (0.8-3.3); LYMPHOCYTES PERCENT AUTO 24.1 % (11.4-47.7); MONOCYTES ABSOLUTE AUTO 0.48 K/uL (0.20-0.90); MONOCYTES PERCENT AUTO 7.8 % (3.3-12.6); NEUTROPHILS ABSOLUTE AUTO 4.08 K/uL (1.0-7.6); NEUTROPHILS PERCENT AUTO 66.2 % (40.0-78.1); PLATELET COUNT,PLT 133 K/uL (130-375); RED BLOOD CELL COUNT 4.39 M/uL (3.77-5.24); WHITE BLOOD CELL COUNT,WBC 6.2 K/uL (3.2-11.0)
[2025-09-04 13:51] LABS: INR 1.1
[2025-09-04 13:56] LABS: IMMATURE GRAN ABSOLUTE AUTO 0.01 K/uL (0.00-0.23)
[2025-09-04 14:00] LABS: LACTIC ACID 2.9 mmol/L (0.4-2.0)
[2025-09-04 14:09] LABS: A/G RATIO 1.0 (1.2-2.2); ALANINE AMINOTRANSFERASE,ALT 39 U/L (12-78); ASPARTATE AMNIOTRANSFERASE,AST 40 U/L (15-37); BILIRUBIN TOTAL 0.5 mg/dL (0.2-1.0); BLOOD UREA NITROGEN,BUN 13 mg/dL (7-18); CARBON DIOXIDE,CO2 26 mmol/L (21-32); CHLORIDE,CL 100 mmol/L (100-108); CREATININE 0.8 mg/dL (0.6-1.0); EST CRCL DRUG DOSING (CG) 57.67 mL/min; ESTIMATED GFR 83 mL/min (>60); GLUCOSE RANDOM 116 mg/dL (74-106); POTASSIUM,K 3.6 mmol/L (3.6-5.2); PROTEIN TOTAL,TP 7.6 g/dL (6.4-8.2); SODIUM,NA 127 mmol/L (140-148); TROPONIN I HIGH SENSITIVITY 5.3 pg/mL (<=60.3)
[2025-09-04 14:50] LABS: APPEARANCE,URINE CLEAR (CLEAR); GLUCOSE,URINE NEGATIVE (NEGATIVE); OCCULT BLOOD,URINE NEGATIVE (NEGATIVE)
[2025-09-04 16:24] LABS: LACTIC ACID 1.4 mmol/L (0.4-2.0)
[2025-09-04] MEDS: Acetaminophen/Butalbital/Caffeine 325-50-40 MG Tab PO ONE (16:54)
[2025-09-04 17:16] VITALS: BP 138/92; PULSE 59
== END 2025-09-04 17:17 | disposition home or self-care (01) ==
LOC: JP.ED 13:02
DX: I16.0 Hypertensive urgency (principal); E87.1 Hypo-osmolality and hyponatremia; R74.02 Elevation of levels of lactic acid dehydrogenase [LDH]; I10 Essential (primary) hypertension; E11.9 Type 2 diabetes mellitus without complications; Z79.4 Long term (current) use of insulin; E78.00 Pure hypercholesterolemia, unspecified; Z88.1 Allergy status to other antibiotic agents; Z79.82 Long term (current) use of aspirin; Z79.899 Other long term (current) drug therapy
CPT/HCPCS: 36415; 80053; 81003; 83605; 84295; 84443; 84484; 85025; 85610; 87040; 93005; 96360; 99285-25; A9270-GY; J7030